=== PATIENT | female | born 1950 | race Caucasian/White ===

== ENCOUNTER 2017-05-17 20:35 | Emergency (ER) | payer MEDICARE, BC ==
[2017-05-17] MEDS ORDERED: Clindamycin CAP* 150 MG PO ONE (21:45)
[2017-05-17 22:12] VITALS: BP 120/68
--- NOTE | 2017-05-18 06:42 | ED ---
[place] [facility], scribed for Sky Hairston MD on 05/17/17 at 2141 . Skin Complaint - HPI Summary HPI Summary: Pt is a 66 y/o F who presents to ED c/o pruritis and erythema around biopsy site on the L breast. Reports that 2 days ago (Sunday morning) she had a biopsy of a raised mole on the L breast in Dr. Braden's office. She had left the Band-Aid covering the site attached then this morning the site became pruritic. She removed the Band-Aid after dinner, after which she noticed the pruritis worsening with associated pain and erythema. Associated pain is currently mild, ranked 3/10 and aggravated by palpation, alleviated by nothing. Additionally c/o nausea. Denies fever, chills. Reports that the wound is not draining. PMHx L breast CA with lumpectomy, chemotherapy and radiation - has been CA free for 6 years. - History of Current Complaint Chief Complaint: EDBreastComplaint Stated Complaint: INFLAMMATION ON LT BREAST-BIOPSY SITE Hx Obtained From: Patient Onset/Duration: Still Present Current Severity: Mild Pain Intensity: 3 Pain Scale Used: 0-10 Numeric Skin Location: Other: - L breast biopsy site Character: Pruritus, Pain, Redness Aggravating Symptom(s): Touch Alleviating Symptom(s): Nothing Associated Signs & Symptoms: Nausea - Allergy/Home Medications Allergies/Adverse Reactions: Allergies Allergy/AdvReac Type Severity Reaction Status Date / Time Alprazolam [From Xanax] Allergy Intermediate See Comment Verified 04/25/17 13:50 Diazepam [From Valium] Allergy Intermediate Altered Verified 04/25/17 13:50 Mental Status Meperidine [From Demerol HCl] Allergy Intermediate Vomiting Verified 04/25/17 13 :50 Morphine and Related Allergy Intermediate Vomiting Verified 04/25/17 13:50 Prochlorperazine Allergy Intermediate Vomiting Verified 04/25/17 13:50 [From Compazine] Sertraline [From Zoloft] Allergy Intermediate See Comment Verified 04/25/17 13: 50 Levofloxacin [From Levaquin] Allergy Mild Abdominal Verified 04/25/17 13:50 Pain Aspartame and Phenylalanine Allergy Difficulty Verified 04/25/17 13:50 Breathing Aspirin Allergy MAKES GUMS Verified 04/25/17 13:50 BLEED Ciprofloxacin [From Cipro] Allergy See Comment Verified 04/25/17 13:50 Codeine Allergy DROP BP, Verified 04/25/17 13:50 N/V Latex Allergy SEVERE Verified 04/25/17 13:50 RASH AND BLISTERS Lorazepam [From Ativan] Allergy HYPERACTIVE Verified 04/25/17 13:50 Paroxetine [From Paxil] Allergy URINARY Verified 04/25/17 13:50 RETENTION Propoxyphene [From Darvon] Allergy DECREASED Verified 04/25/17 13:50 BP AND NAUSEA lidocan with epi Allergy Severe Unknown Uncoded 04/25/17 13:50 Reaction Details PMH/Surg Hx/FS Hx/Imm Hx Endocrine/Hematology History: Reports: 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, FOLLOWED CLOSELY BY Denies: Hx Diabetes, Hx Thyroid Disease Cardiovascular History: Denies: Hx Hypertension, Hx Pacemaker/ICD, Other Cardiovascular Problems/ Disorders Respiratory History: Denies: Hx Asthma, Hx Chronic Obstructive Pulmonary Disease (COPD), Other Respiratory Problems/Disorders GI History: Reports: Hx Irritable Bowel - Hx OF, STATES [place] SINCE 2010, STILL CHRONIC CONSTIPATION,USES OTC MEDS Denies: Hx Ulcer, Other GI Disorders History: Denies: Hx Renal Disease, Other Problems/Disorders Comment Only: Hx Kidney Stones - 07/21/14, SOME HEMATURIA, POSSIBLE STONE, NOT CONFIRMED, NO Sx SINCE Musculoskeletal History: Reports: Other Musculoskeletal History - AGE 15, "FRACTURED BACK" Denies: Hx Rheumatoid Arthritis, Hx Osteoporosis Sensory History: Reports: Hx Contacts or Glasses - CONTACTS: WILL WEAR GLASSES DAY OF SURGERY Denies: Hx Hearing Aid Opthamlomology History: Reports: Hx Contacts or Glasses - CONTACTS: WILL WEAR GLASSES DAY OF SURGERY Neurological History: Reports: Hx Headaches, Hx Migraine - USUALLY GETS MONTHLY , USES OTC MEDS FOR RELIEF Denies: Other Neuro Impairments/Disorders Psychiatric History: Denies: Hx Panic Disorder - Cancer History Cancer Type, Location and Year: LT BREAST - LUMPECTOMY Hx Chemotherapy: Yes Hx Radiation Therapy: Yes - Surgical History Surgery Procedure, Year, and Place: 1973 Overian cyst removal [facility]. 2000 Left breast ca LUMPECTOMY, PORT INSERTED AND REMOVAL [facility]. 1983 TUBAL LIGATION [facility]. 02/2014 lt shoulder RCR [facility]. 1992 FOREIGN BODY REMOVAL FROM RT HAND [facility]. 01/02/15 Rt SHOULDER RCR Hx Anesthesia Reactions: Yes - 1983 VERY SLOW TO WAKE UP, N/V 3 DAYS Infectious Disease History: No Infectious Disease History: Denies: Hx Hepatitis, Hx Human Immunodeficiency Virus (HIV), Traveled Outside the [place] in Last 30 Days - Family History Known Family History: Positive: Respiratory Disease - Asthma, Other - Multiple myeloma - Social History Alcohol Use: None Substance Use Type: Reports: None Smoking Status (MU): Never Smoked Tobacco Have You Smoked in the Last Year: No Review of Systems Negative: Fever, Chills Positive: Nausea Positive: Other - Pruritis, erythema and pain around biopsy site on L breast; NEGATIVE: drainage All Other Systems Reviewed And Are Negative: Yes Physical Exam - Summary Physical Exam Summary: The patient is well-nourished in no acute distress and in no acute pain. The skin is warm and dry. She has got a small lesion on her left breast with no axillary adenopathy. The area has erythema with no abscess or fluid collection, but there is a white area in the center that appears to be infected. She has two other biopsy areas, one on the left wrist and the other on the left scapula that are healing well with no evidence of infection. HEENT: The head is normocephalic and atraumatic. The pupils are equal and reactive. The conjunctivae are clear and without drainage. Nares are patent and without drainage. Mouth reveals moist mucous membranes and the throat is without erythema and exudate. The external ears are intact. The ear canals are patent and without drainage. The tympanic membranes are intact. Neck is supple with full range of motion and non-tender. There are no carotid bruits. There is no neck vein distension. Respiratory: Chest is non-tender. Lungs are clear to auscultation and breath sounds are symmetrical and equal. Cardiovascular: Hear is regular rate and rhythm. There is no murmur or rub auscultated. There is no peripheral edema and pulses are symmetrical and equal. Abdomen: The abdomen is soft and non-tender. There are normal bowel sounds heard in all four quadrants and there is no organomegaly palpated. Musculoskeletal: There is no back pain noted. Extremities are non-tender with full range of motion. There is good capillary refill. There is no peripheral edema or calf tenderness elicited. Neurological: Patient is alert and oriented to person, place and time. The patient has symmetrical motor strength in all four extremities. Psychiatric: The patient has an appropriate affect and does not exhibit any anxiety or depression. , Triage Information Reviewed: Yes Vital Signs On Initial Exam: Initial Vitals Temp Pulse Resp BP Pulse Ox 97.8 F 86 17 143/81 98 05/17/17 20:40 05/17/17 20:40 05/17/17 20:40 05/17/17 20:40 05/17/17 20:40 Vital Signs Reviewed: Yes Diagnostics - Vital Signs Vital Signs Temp Pulse Resp BP Pulse Ox 05/17/17 20:40 97.8 F 86 17 143/81 98 - Laboratory Lab Statement: Any lab studies that have been ordered have been reviewed, and results considered in the medical decision making process. Course/Dx - Course Assessment/Plan: Pt is a 66 y/o F who presents to ED c/o pruritis and erythema around biopsy site on the L breast. Reports that 2 days ago (Sunday) she had a biopsy of a raised mole on the L breast in Dr. Braden's office. She had left the Band-Aid covering the site attached then this morning the site became pruritic. She removed the Band-Aid after dinner upon the pruritis worsening and noticed associated pain and erythema. Associated pain is currently mild, ranked 3/10 and aggravated by palpation, alleviated by nothing. Additionally c/o nausea. Denies fever, chills. Reports that the wound is not draining. PMHx L breast CA with lumpectomy, chemotherapy and radiation - has been CA free for 6 years. PE reveals that she has a small lesion on her left breast with no axillary adenopathy. The area has erythema with no abscess or fluid collection, but there is a white area in the center that appears to be infected. She has two other biopsy areas, one on the left wrist and the other on the left scapula that are healing well with no evidence of infection. In the ED course, pt was administred Clindamycin. She will be D/C to home with Dx of infeciton, L breast with an Rx for Clindamycin and a follow up with her PCP. She understands and agrees. Elevated BP noted and advised to f/u with PCP. - Differential Diagnoses - Skin Complaint Differential Diagnoses: Cellulitis - Diagnoses Provider Diagnoses: Infection of left breast Discharge - Discharge Plan Condition: Stable Disposition: HOME Prescriptions: Clindamycin Cap(NF) [Clindamycin Cap 300 mg Cap(NF)] 300 mg PO Q6H #28 cap Patient Education Materials: Cellulitis (ED) Referrals: Makenzie Lang MD [Primary Care Provider] - 3 Days The documentation as recorded by the [place] [facility] accurately reflects the service I personally performed and the decisions made by , Sky Hairston MD.
== END 2017-05-17 22:10 | disposition home or self-care (01) ==
LOC: ED 20:35
DX: N61.0 Mastitis without abscess (principal)
CPT/HCPCS: 99282; A9270-GY

== ENCOUNTER 2019-09-04 08:09 | Emergency (ER) | payer MEDICARE, BC ==
--- OUTSIDE RECORDS SUMMARY | 2019-09-04 08:17 | XMS REPORT | Continuity of Care Document ---
:1950 External Reference #:[id number] Author Name Choco Anaya M.D. Address [address] [place] [address] Care Team Providers Name Role Phone Natan Knight linda Care Team Information Craps Manager [phone] Makenzie Lang M.D. Care Team Information Craps Manager [phone] Problems Description No Information Available Social History Type Date Description Comments Sex Unknown Tobacco Use Start: Unknown Never Smoked Cigarettes Tobacco Use Start: Unknown Never Smoked Cigars Tobacco Use Start: Unknown Never Smoked A Pipe Smokeless Tobacco Never Used Smokeless Tobacco ETOH Use Denies alcohol use Allergies, Adverse Reactions, Alerts Active Allergies Reaction Severity Comments Date Demerol 07/14/2019 Propoxyphene 07/14/2019 Morphine 07/14/2019 Codeine 07/14/2019 Ativan 07/14/2019 Prozac 07/14/2019 Zoloft 07/14/2019 Paxil 07/14/2019 Cipro 07/14/2019 Tylenol 07/14/2019 lidocaine with epinephrine Severe Seizures 07/14/2019 Medications Active Medications SIG Qnty Indications Ordering Provider Date Vitamin B6 2 tabs daily Unknown 50mg Tablets Probiotic 1 by mouth every Unknown Capsules day Fiber Complete 3 gummies every Unknown Tablets day [facility] D3 daily Unknown 50mcg (2000 Ut) Capsules Fiber Diet as directed Unknown Tablets Biotin Gummies' daily Unknown Immunizations Description No Information Available Vital Signs Date Vital Result Comment 07/29/2019 3:05pm Weight 121.00 lb Weight 54.886 kg Height 63 inches 5'3" Height in cm's 160.0 cm BMI (Body Mass Index) 21.4 kg/m2 07/14/2019 1:57pm BP Systolic 153 mmHg BP Diastolic 93 mmHg Heart Rate 70 /min Respiratory Rate 17 /min Weight 121.00 lb Weight 54.886 kg Height 63 inches 5'3" Height in cm's 160.0 cm BMI (Body Mass Index) 21.4 kg/m2 Results Description No Information Available Procedures Date Code Description Status 07/14/2019 72624 Tympanometry Completed 07/14/2019 79296 Comprehensive Audiogram Completed Medical Devices Description No Information Available Encounters Type Date Location Provider Dx Diagnosis Office Visit 07/29/2019 [place] Dizziness and 3:00p 09/10/07 Tammy Anaya giddiness Office Visit 07/14/2019 [place] Dizziness and 1:30p 09/10/07 Tammy Anaya giddiness Assessments Date Code Description Provider 07/29/2019 R42 Dizziness and giddiness Choco Anaya M.D. 07/14/2019 R42 Dizziness and giddiness MANOLO Niño 07/14/2019 R42 Dizziness and giddiness Choco Anaya M.D. Plan of Treatment 07/29/2019 - Choco Anaya M.D.R42 Dizziness and giddinessComments:The patient returns today after her MRI and MRA. She has done well since I saw her the last time without any episodes. Her MRI and MRA are normal. I don't know what the cause of her symptoms has been. But there does not seem to be anything to be particularly concerned about. Functional Status Description No Information Available Mental Status Description No Information Available Referrals Description No Information Available
--- OUTSIDE RECORDS SUMMARY | 2019-09-04 08:17 | XMS REPORT | Continuity of Care Document ---
:1950 External Reference #:[id number] Author Name Makenzie Lang M.D. (transmitted by agent of provider Martha Mane) Address [address], [place] [address] Care Team Providers Name Role Phone Digna Valdes MD - Internal Medicine Care Team Information Search Consultant [phone] Makenzie Lang MD - Internal Care Team Information Search Consultant Medicine Samia Correa MD - Dermatology Care Team Information Search Consultant Problems Active Problems Provider Date Shoulder joint pain Digna Valdes M.D. Onset: 03/14/2013 Personal history of primary malignant Makenzie Lang M.D. Onset: 2013 neoplasm of breast Thrombocytopenic disorder Makenzie Lang M.D. Onset: 01/23/2014 Osteopenia Makenzie Lang M.D. 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 Onset: 2016 Right side sciatica Jeff Carpio M.D. Onset: 03/16/2017 Social History Type Date Description Comments Sex Unknown ETOH Use Never used alcohol Tobacco Use Start: Unknown Patient has never smoked Recreational Drug Use Denies Drug Use Smoking Status Reviewed: 07/24/19 Patient has never smoked Exercise Type/Frequency label folder Allergies, Adverse Reactions, Alerts Active Allergies Reaction Severity Comments Date Morphine 07/18/2007 Codeine 07/18/2007 Demerol 07/18/2007 Darvon 07/18/2007 Aspartame 07/18/2007 Epinephrine 07/18/2007 Valium severe headaches 07/18/2007 Latex 05/23/2013 Xanax 05/23/2013 Zoloft 05/23/2013 Paxil 05/23/2013 Artificial Sweeteners 05/23/2013 Johnnyivan makes her more anxious 10/23/2013 Cipro 11/19/2014 Acetaminophen 12/22/2016 Ibuprofen profound weakness 06/12/2019 Medications Active Medications SIG Qnty Indications Ordering Provider Date Digestive Health 1 po qd Unknown Probiotic Capsules Benefiber 1 tblsp po qd Unknown Powder Potassium taking whole tab Unknown 99mg now---1/2 tab qd Tablets Magnesium 1 by mouth every Unknown 500mg day Tablets Epipen 2-Jesus use as directed 2units Makenzie Lang M.DChandra 0.3mg/0.3ML Solution Auto-Inject Vitamin B-6 daily Unknown 25mg Tablets Vitamin D3 Complete once daily Unknown 2000Iu Tablets Melatonin 1-2 tablets at Unknown 5mg bed time Capsules Medications Administered in Office Medication SIG Qnty Indications Ordering Provider Date Depomedrol 80MG Williams Faria M.D. 04/10/2013 Injection Immunizations CPT Code Status Date Vaccine Lot # [id number] Given 04/22/2013 Tdap - Tetanus/Diptheria/Acellular Pertussis Vital Signs Date Vital Result Comment 07/24/2019 7:44am Height 62.5 inches 5'2.50" Weight 119.00 lb Heart Rate 65 /min BP Systolic 109 mmHg BP Diastolic 66 mmHg O2 % BldC Oximetry 100 % BMI (Body Mass Index) 21.4 kg/m2 06/12/2019 8:28am Height 62.5 inches 5'2.50" Weight 117.00 lb Heart Rate 74 /min BP Systolic 114 mmHg BP Diastolic 61 mmHg O2 % BldC Oximetry 100 % BMI (Body Mass Index) 21.1 kg/m2 Results Test Acquired Date Facility Test Result H/L Range Note Laboratory test 04/24/2019 [facility] TSH 1.75 Normal 0.34- 5.[address] (Thyroid mcIU/[place] [address] Stim [phone] Horm) C Reactive Protein < 1.00 mg/L Normal <8.01 Lyme Screen W/ Reflex To WB Negative Negative Laboratory test 04/04/2019 [facility] C Reactive < 1.00 Normal <8.[address] Protein mg/[place] [address] [phone] Folic Acid (Folate) 12.70 ng/mL >3.99 Vitamin B12 > 1450 pg/mL High 180-914 1 Erythrocyte Sed Rate 0 mm/Hr Normal 0-29 Comp Metabolic 03/28/2019 [facility] Sodium 141 mmol/L Normal 135-[address] [place] [address] [phone] Potassium 4.4 mmol/L Normal 3.5-5.0 Chloride 106 mmol/L Normal 101-111 Co2 Carbon Dioxide 29 mmol/L Normal 22-32 Anion Gap 6 mmol/L Normal 2-11 Glucose 104 mg/dL High 70-100 Blood Urea Nitrogen 18 mg/dL Normal 6-24 Creatinine 0.77 mg/dL Normal 0.51-0.95 BUN/Creatinine Ratio 23.4 High 8-20 Calcium 9.5 mg/dL Normal 8.6-10.3 Total Protein 6.8 g/dL Normal 6.4-8.9 Albumin 4.3 g/dL Normal 3.2-5.2 Globulin 2.5 g/dL Normal 2-4 Albumin/Globulin Ratio 1.7 Normal 1-3 Total Bilirubin 0.70 mg/dL Normal 0.2-1.0 Alkaline Phosphatase 62 U/L Normal 34-104 Alt 16 U/L Normal 7-52 Ast 23 U/L Normal 13-39 Egfr Non- 74.3 >60 Egfr 89.9 >60 2 Laboratory test 03/28/2019 [facility] CRP High 0.22 <2.[address] Sensitivity mg/[place] [address] [phone] CBC Auto Diff 03/28/2019 [facility] White Blood 3.7 Normal 3.5 -10.[address] Count 10^3/[place] [address] [phone] Red Blood Count 4.25 10^6/uL Normal 3.70-4.87 Hemoglobin 14.1 g/dL Normal 12.0-16.0 Hematocrit 42 % Normal 35-47 Mean Corpuscular Volume 99 fL High 80-97 Mean Corpuscular Hemoglobin 33 pg High 27-31 Mean Corpuscular HGB Conc 34 g/dL Normal 31-36 Red Cell Distribution Width 13 % Normal 10-15 Platelet Count 121 10^3/uL Low 150-450 Mean Platelet Volume 9.2 fL Normal 7.4-10.4 Abs Neutrophils 2.3 10^3/uL Normal 1.5-7.7 Abs Lymphocytes 0.9 10^3/uL Low 1.0-4.8 Abs Monocytes 0.4 10^3/uL Normal 0-0.8 Abs Eosinophils 0.1 10^3/uL Normal 0-0.6 Abs Basophils 0.1 10^3/uL Normal 0-0.2 Abs Nucleated RBC 0.0 10^3/uL Granulocyte % 61.8 % Lymphocyte % 24.1 % Monocyte % 11.1 % Eosinophil % 1.6 % Basophil % 1.4 % Nucleated Red Blood Cells % 0.0 Laboratory test 03/28/2019 [facility] Erythrocyte Sed 0 mm/Hr Normal 0-[address] [place] [address] [phone] Lyme Screen W/ Reflex To WB Negative Negative Lyme Disease AB 03/28/2019 [facility] IgG Immunoblot Negative Negative Immunoblot WB [address] [place] [address] [phone] IgG detected against p41 kDa IgM Immunoblot Negative Negative IgM detected against None kDa Lyme Disease Interpretation See Comment 3 1 Normal Range 180 to 914 Indeterminate Range 145 to 180 Deficient Range <145 2 Because ethnic data is not always readily available, this report includes an eGFR for both -Americans and non- Americans. The National Kidney Disease Education Program (NKDEP) does not endorse the use of the MDRD equation for patients that are not between the ages of 18 and 70, are , have extremes of body size, muscle mass, or nutritional status, or are non- or non-. According to the National Kidney Foundation, irrespective of diagnosis, the stage of the disease is based on the level of kidney function: Stage Description GFR(mL/min/1.73 m(2)) 1 Kidney damage with normal or decreased GFR 90 2 Kidney damage with mild decrease in GFR 60-89 3 Moderate decrease in GFR 30-59 4 Severe decrease in GFR 15-29 5 Kidney failure <15 (or dialysis) 3 Specific serologic response to B. burgdorferi infection is not detected, but cannot rule out early infection during which low or undetectable antibody levels to B. burgdorferi may be present. If clinically indicated, a new serum specimen should be submitted in 7-14 days. ADDITIONAL INFORMATION Per CDC criteria, the Lyme IgG Immunoblot is interpreted as positive if IgG-class antibodies are detected to >=5 B. burgdorferi proteins, and the Lyme IgM Immunoblot is interpreted as positive if IgM-class antibodies are detected to >=2 B. burgdorferi proteins. Immunoblot patterns not meeting these criteria should not be interpreted as positive. Epitopes from certain B. burgdorferi proteins (e.g., p41) are conserved across other bacteria, which may lead to the detection of IgM- and/or IgG-class antibodies on the Lyme disease immunoblots in patients without Lyme disease. Immunoblot should only be ordered on specimens that are positive or equivocal by a FDA-licensed Lyme disease antibody screening test (e.g., EIA). Results of the Lyme IgM immunoblot should not be considered in patients with >= 30 days of symptoms. Test Performed by: [facility] [address] [place] [address] Procedures Date Code Description Status 11/21/2018 [id number] Mammogram Completed 11/20/2017 [id number] Mammogram Completed 11/14/2016 [id number] Mammogram Completed 11/09/2015 [id number] Mammogram Completed 11/10/2014 [id number] Mammogram Completed 04/03/2013 [id number] Mammogram Completed 01/10/2013 [id number] Bone Mineral Density Test Completed 04/10/2011 [id number] Colonoscopy Completed Medical Devices Description No Information Available Encounters Type Date Location Provider Dx Diagnosis Office Visit 06/12/2019 [facility] Makenzie Lang, M54.31 Sciatica, right 8:40a Dana Porter M.D. side Z63.4 Disappearance and of family member D22.9 Melanocytic nevi, unspecified H81.313 Aural vertigo, bilateral Office Visit 04/14/2019 1:00p [facility] R53.81 Other malaise Dana Lang M.D. Office Visit 01/27/2019 10:00a [facility] Internal Makenzie R63.4 Abnormal weight Medicine - Charlotte Lang M.D. loss F33.9 Major depressive disorder, recurrent, unspecified R42 Dizziness and giddiness Assessments Date Code Description Provider 07/24/2019 G50.1 Atypical facial pain Makenzie Lang M.D. 06/12/2019 M54.31 Sciatica, right side Makenzie Lang M.D. 06/12/2019 Z63.4 Disappearance and of family member Makenzie Lang M.D. 06/12/2019 D22.9 Melanocytic nevi, unspecified Makenzie Lang M.D. 06/12/2019 H81.313 Aural vertigo, bilateral Makenzie Lang M.D. 04/24/2019 Z00.00 Encounter for general adult medical Makenzie Lang M.D. examination without abnormal findings 04/24/2019 M85.852 Other specified disorders of bone density Makenzie Lang M.D. and structure, left thigh 04/24/2019 F33.9 Major depressive disorder, recurrent, Makenzie Lang M.D. unspecified 04/24/2019 D22.9 Melanocytic nevi, unspecified Makenzie Lang M.D. 04/24/2019 R42 Dizziness and giddiness Makenzie Lang M.D. 04/14/2019 R53.81 Other malaise Makenzie Lang M.D. 01/27/2019 R63.4 Abnormal weight loss Makenzie Lang M.D. 01/27/2019 F33.9 Major depressive disorder, recurrent, Makenzie Lang M.D. unspecified 01/27/2019 R42 Dizziness and giddiness Makenzie Lang M.D. Plan of Treatment Future Appointment(s):11/13/2019 7:40 am - Maken[facility] M.D. at [facility] 3[facility]15 pm - Samia Correa MD at [facility] Iudpodzukbs57/15/2019 10:00 am - Jose Tariq LCSW at [facility] - Makenzie Lang M.D.G50.1 Atypical facial painComments: Continue talking with Jose Nicholson on Sunday - I will call you about the result. You should also follow up with Dr. Deleon up:November for f/u mood Functional Status Description No Information Available Mental Status Description No Information Available Referrals Refer to Reason for Referral Status Appt Date Samia Correa MD Sent 08/05/2019 [address] [facility] [place] [address] [phone] Patricia Biswas MD Pt will schedule appt. Received Partial [address] [facility] [facility] [address] [place] [address] [phone] Jose Tariq, POST ANESTHESIA ROOM NURSE 03/10/19 LMTCB for an appt. S5 LMTCB to Scheduled 02/07/2019 schedue-letter sent 03/31 [place] [address] [phone]
--- OUTSIDE RECORDS SUMMARY | 2019-09-04 08:17 | XMS REPORT | Continuity of Care Document ---
:1950 External Reference #:[id number] Author Name Choco Anaya M.D. Address [address] [place] [address] Care Team Providers Name Role Phone Natan Knight linda Care Team Information Retarder Operator [phone] Makenzie Lang M.D. Care Team Information Retarder Operator [phone] Problems Description No Information Available Social History [...] Available Vital Signs Date Vital Result Comment 07/14/2019 1:57pm BP Systolic 153 mmHg BP Diastolic 93 mmHg Heart Rate 70 /min Respiratory Rate 17 /min Weight 121.00 lb Weight 54.886 kg Height 63 inches 5'3" Height in cm's 160.0 cm BMI (Body Mass Index) 21.4 kg/m2 Results Description No Information Available Procedures Description No Information Available Medical Devices Description No Information Available Encounters Type Date Location Provider Dx Diagnosis Office Visit 07/14/2019 Natan Collier R42 Dizziness and 1:30p 09/10/07 Tammy Anaya giddiness Assessments Date Code Description Provider 07/14/2019 R42 Dizziness and giddiness Choco Anaya M.D. Plan of Treatment No Information Available Functional Status Description No Information Available Mental Status Description No Information Available Referrals Description No Information Available
--- OUTSIDE RECORDS SUMMARY | 2019-09-04 08:17 | XMS REPORT | Continuity of Care Document ---
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 Allergies, Adverse Reactions, Alerts Active Allergies Reaction Severity Comments Date Morphine 07/18/2007 Codeine 07/18/2007 Demerol 07/18/2007 Darvon 07/18/2007 Aspartame 07/18/2007 Epinephrine 07/18/2007 Valium severe headaches 07/18/2007 Latex 05/23/2013 Xanax 05/23/2013 Zoloft 05/23/2013 Paxil 05/23/2013 Artificial Sweeteners 05/23/2013 Devon makes her more anxious 10/23/2013 Cipro 11/19/2014 Acetaminophen 12/22/2016 Ibuprofen profound weakness 06/12/2019 Medications Active Medications SIG Qnty Indications Ordering Provider Date Flovent HFA 1-2 puffs twice 10.600gm R05 Kitty Taylor, 08/25/2019 44mcg/Act daily for 2-3 M.D., FACP Aerosol weeks Digestive Health 1 po qd Unknown Probiotic Capsules Benefiber 1 tblsp po qd Unknown Powder Potassium taking whole tab Unknown 99mg now---1/2 tab qd Tablets Magnesium 1 by mouth every Unknown 500mg day Tablets Epipen 2-Jesus use as directed 2units Makenzie Lang, M.DChandra 0.3mg/0.3ML Solution Auto-Inject Vitamin B-6 daily Unknown 25mg Tablets Vitamin D3 Complete once daily Unknown 2000Iu Tablets Melatonin 1-2 tablets at Unknown 5mg bed time Capsules Medications Administered in Office Medication SIG Qnty Indications Ordering Provider Date Depomedrol 80MG Williams aFria M.D. 04/10/2013 Injection Immunizations CPT Code Status Date Vaccine Lot # [id number] Given 04/22/2013 Tdap - Tetanus/Diptheria/Acellular Pertussis Vital Signs Date Vital Result Comment 08/25/2019 1:56pm Height 62.5 inches 5'2.50" Weight 117.00 lb Heart Rate 85 /min BP Systolic Sitting 128 mmHg BP Diastolic Sitting 70 mmHg O2 % BldC Oximetry 97 % BMI (Body Mass Index) 21.1 kg/m2 07/24/2019 7:44am Height 62.5 inches 5'2.50" Weight 119.00 lb Heart Rate 65 /min BP Systolic 109 mmHg BP Diastolic 66 mmHg O2 % BldC Oximetry 100 % BMI (Body Mass Index) 21.4 kg/m2 Results Test Acquired Date Facility Test Result H/L Range Note Laboratory test 07/25/2019 [facility] Blood Urea 20 mg/dL Normal 6-[address] [place] [address] [phone] Creatinine 07/25/2019 [facility] Creatinine 0.76 mg/dL Normal 0.51-[address] [place] [address] [phone] Egfr Non- 75.5 >60 Egfr 91.3 >60 1 Laboratory 04/24/2019 [facility] TSH (Thyroid 1.75 Normal 0.34 -5.[address] Stim Horm) mcIU/[place] [address] [phone] C Reactive Protein < 1.00 mg/L Normal <8.01 Lyme Screen W/ Reflex To WB Negative Negative Laboratory test 04/04/2019 [facility] C Reactive < 1.00 Normal <8.01 finding [address] [facility] Protein mg/[place] [address] [phone] Folic Acid (Folate) 12.70 ng/mL >3.99 Vitamin B12 > 1450 pg/mL High 180-914 2 Erythrocyte Sed Rate 0 mm/Hr Normal 0-29 Comp Metabolic 03/28/2019 [facility] Sodium 141 mmol/L Normal 135-145 Panel [address] [place] [address] [phone] Potassium 4.4 mmol/L Normal 3.5-5.0 Chloride 106 [...] Egfr Non- 74.3 >60 Egfr 89.9 >60 3 Laboratory test 03/28/2019 [facility] CRP High 0.22 <2.[address] Sensitivity mg/[place] [address] [phone] CBC Auto Diff 03/28/2019 [facility] White Blood 3.7 Normal 3.5 -10.[address] Count 10^3/[place] [address] [phone] Red Blood Count 4.25 10^6/uL Normal 3.70-4.87 [...] Blood Cells % 0.0 Laboratory test 03/28/2019 [facility] Erythrocyte Sed 0 mm/Hr Normal 0-[address] [place] [address] [phone] Lyme Screen W/ Reflex To WB Negative Negative Lyme Disease AB 03/28/2019 [facility] IgG Immunoblot Negative Negative Immunoblot WB [address] [place] [address] [phone] IgG detected against p41 kDa IgM Immunoblot Negative Negative IgM detected against None kDa Lyme Disease Interpretation See Comment 4 1 Because ethnic data is not always readily [...] 15-29 5 Kidney failure <15 (or dialysis) 2 Normal Range 180 to 914 Indeterminate Range 145 to 180 Deficient Range <145 3 Because ethnic data is not always readily [...] 15-29 5 Kidney failure <15 (or dialysis) 4 Specific serologic response to B. burgdorferi infection [...] 30 days of symptoms. Test Performed by: [facility] [address] [place] [address] Procedures Date Code Description Status 11/21/2018 [id number] Mammogram Completed 11/20/2017 [id number] Mammogram Completed 11/14/2016 [id number] Mammogram Completed 11/09/2015 [id number] Mammogram Completed 11/10/2014 [id number] Mammogram Completed 04/03/2013 [id number] Mammogram Completed 01/10/2013 [id number] Bone Mineral Density Test Completed 04/10/2011 [id number] Colonoscopy Completed Medical Devices Description No Information Available Encounters Type Date Location Provider Dx Diagnosis Office Visit 08/05/2019 [facility] Dermatology Samia Correa, D22.5 Melanocytic nevi of 3:15p trunk L81.4 Other melanin hyperpigmentation L82.1 Other seborrheic keratosis Office Visit 07/24/2019 7:40a [facility] Internal Makenzie Lang, G50.1 [facility].D[facility] pain F33.9 Major depressive disorder, recurrent, unspecified Office Visit 06/12/2019 8:40a [facility] Internal Makenzie M54.31 Sciatica, right Medicine - Tammy Lang side [facility] Z63.4 Disappearance and of family member D22.9 Melanocytic nevi, unspecified H81.313 Aural vertigo, bilateral Office Visit 04/14/2019 1:00p [facility] Internal Makenzie Lang, R53.81 Other malaise Medicine - [facility] M.Britni Assessments Date Code Description Provider 08/25/2019 R05 Cough Kitty Taylor M.D., FACP 08/05/2019 D22.5 Melanocytic nevi of trunk Samia Correa MD 08/05/2019 L81.4 Other melanin hyperpigmentation Samia Correa MD 08/05/2019 L82.1 Other seborrheic keratosis Samia Correa MD 07/24/2019 G50.1 Atypical facial pain Makenzie Lang M.D. 07/24/2019 F33.9 Major depressive disorder, recurrent, Makenzie Lang M.D. unspecified 06/12/2019 M54.31 Sciatica, right side Makenzie Lang [...] 04/14/2019 R53.81 Other malaise Makenzie Lang M.D. Plan of Treatment Future Appointment(s):08/06/2020 10:00 am - Samia Correa MD at [facility] Pqozzpxzlwh98/20/2019 10:00 am - Jose Tariq LCSW at [facility] Internal [facility]/13/2019 7:40 am - Makenzie Lang M.D. at [facility]25/2019 - Kitty Taylor M.D., FACPR05 CoughNew Medication:Flovent HFA 44 mcg/Act - 1-2 puffs twice daily for 2-3 weeksComments:COUGH:This is most likely due to mechanical issues such as reactive airways and post nasal drip.I recommend aggressive symptom management with inhaled steroids, cough suppression with OTC or rx preps.I understand you have had reactions in the past to many meds. I have sent rx's for the Flovent to your pharmacy. You may use Mucinex and nasal saline as needed. You may also use phenylephrine or pseudoephedrine (decongestants) as needed, however be aware that these meds are stimulating. Keep well hydrated. Call back if you experience any symptoms consistent with a secondary bacterial process (ie,fevers or chills, heavier cough, shortness of breath). It is possible that an antibiotic may have utility if this occurs.Follow up:as needed Functional Status Description No Information Available Mental Status Description No Information Available Referrals Refer to Reason for Referral Status Appt Date Samia Correa MD Sent 08/05/2019 [address] [facility], [place] [address] [phone] Patricia Biswas MD Pt will schedule appt. Received Partial [address] [facility] [address] [place] [address] [phone]
[2019-09-04 08:40] VITALS: BP 141/65
--- NOTE | 2019-09-04 08:53 | UC ---
General HPI - HPI Summary HPI Summary: 69 yo woman comes for evaluation of a rash on the right side of her neck. She is concerned about possible Lyme disease. Noticed a sore spot on her right neck on 08/28 and assumed she might have a bite (has a horse, has been feeding him hay), but then noticed an ovoid rash x 3 days ago, coupled with ache across the low back and sharp epigastric pains. She does not have fever, no urinary symptoms, normal bowel function. Her of heart disease exacerbated by Lyme disease. She has tested negative for Lyme disease in the past Does have hx of OA in the hip, and hx of msk pain. She does not have joint swelling or diffuse arthroalgias. - History of Current Complaint Chief Complaint: Christine Stated Complaint: BUG BITE ON SHOULDER PAIN IN PELVIS AREA Time Seen by Provider: 09/04/19 08:35 Hx Obtained From: Patient Onset/Duration: Gradual Onset, Lasting Days - 4 Timing: Constant Onset Severity: Mild Current Severity: Moderate Pain Intensity: 7 Associated Signs & Symptoms: Negative: Diarrhea, Dysuria, Diaphoresis, Fever, Headache - Allergy/Home Medications Allergies/Adverse Reactions: Allergies Allergy/AdvReac Type Severity Reaction Status Date / Time acetaminophen Allergy Hallucinati Verified 09/04/19 08:26 ons alprazolam Allergy See Comment Verified 09/04/19 08:26 aspartame Allergy Tachycardia Verified 09/04/19 08:26 aspirin Allergy See Comment Verified 09/04/19 08:26 ciprofloxacin Allergy See Comment Verified 09/04/19 08:26 codeine Allergy See Comment Verified 09/04/19 08:26 cyclosporine [From Restasis] Allergy See Comment Verified 09/04/19 08:40 diazepam Allergy Altered Verified 09/04/19 08:26 Mental Status ibuprofen [From Advil] Allergy Dizziness Verified 09/04/19 08:26 latex Allergy Rash And Verified 09/04/19 08:26 Itching levofloxacin Allergy Abdominal Verified 09/04/19 08:26 Pain lorazepam Allergy See Comment Verified 09/04/19 08:26 meperidine Allergy Vomiting Verified 09/04/19 08:26 morphine Allergy Vomiting Verified 09/04/19 08:26 paroxetine Allergy See Comment Verified 09/04/19 08:26 phenylalanine Allergy Tachycardia Verified 09/04/19 08:26 prochlorperazine Allergy Vomiting Verified 09/04/19 08:26 propoxyphene Allergy See Comment Verified 09/04/19 08:26 sertraline Allergy See Comment Verified 09/04/19 08:26 lidocan with epi Allergy Severe Unknown Uncoded 09/04/19 08:26 Reaction Details Home Medications: Home Medications Biotin 1 tab PO DAILY 09/04/19 [History Confirmed 09/04/19] Dextromethorphan HBr [Tussin Cough] 1 dose PO ONCE PRN 09/04/19 [History Confirmed 09/04/19] Fluticasone HFA 44 mcg(NF) [Flovent Hfa 44 mcg(NF)] 1 - 2 puff INH BID 09/04/19 [History Confirmed 09/04/19] Sambucol Elderberry 1 dose PO ONCE PRN 09/04/19 [History Confirmed 09/04/19] PMH/Surg Hx/FS Hx/Imm Hx Previously Healthy: Yes Cancer History: Breast Cancer - Surgical History Surgical History: Yes Surgery Procedure, Year, and Place: 1973 Overian cyst removal [facility]. 2000 Left breast ca LUMPECTOMY, PORT INSERTED AND REMOVAL [facility]. 1983 TUBAL LIGATION [facility]. 02/2014 lt shoulder RCR [facility]. 1992 FOREIGN BODY REMOVAL FROM RT HAND [facility]. 01/02/15 Rt SHOULDER RCR - Family History Known Family History: Positive: Respiratory Disease - Asthma, Other - Multiple myeloma - Social History Occupation: Retired Lives: Alone Alcohol Use: Rare Substance Use Type: None Smoking Status (MU): Never Smoked Tobacco Have You Smoked in the Last Year: No Review of Systems All Other Systems Reviewed And Are Negative: Yes Constitutional: Positive: Negative Skin: Positive: Rash Eyes: Positive: Negative ENT: Positive: Sore Throat - mild symptoms, and wonders if she might have thrush Respiratory: Positive: Other - recent treatment of bronchitis, treated with inhaler (viral dx) Cardiovascular: Negative: Palpitations, Chest Pain Gastrointestinal: Positive: Negative Genitourinary: Positive: Negative Motor: Positive: Negative Neurovascular: Positive: Negative Musculoskeletal: Positive: Arthralgia Neurological: Positive: Negative Psychological: Positive: Negative Is Patient Immunocompromised?: No Physical Exam Triage Information Reviewed: Yes Appearance: Well-Appearing, No Pain Distress Vital Signs: Initial Vital Signs Temp 98.2 F 09/04/19 08:17 Pulse 88 09/04/19 08:17 Resp 18 09/04/19 08:17 BP 141/65 09/04/19 08:17 Pulse Ox 98 09/04/19 08:17 Eye Exam: Normal ENT: Positive: Pharynx normal, TMs normal, Other - normal mucous membranes, no evidence of thrush Dental Exam: Normal Neck: Positive: Supple, Nontender, No Lymphadenopathy Respiratory: Positive: Lungs clear, Normal breath sounds Cardiovascular: Positive: RRR, No Murmur Abdomen Description: Positive: Nontender, No Organomegaly, Soft Musculoskeletal Exam: Normal Musculoskeletal: Positive: Strength Intact Neurological Exam: Normal Neurological: Positive: Alert Psychological Exam: Normal Skin Exam: Other - ovoid erythematous patch 3 x 1 cm right medial clavicular area, mild scale, without induration or evidence of puncture wound. Non- blanching. Course/Dx - Course Course Of Treatment: Advised that rash is not suggestive of erythema migrans (no expansion/size does not meed criteria). - Differential Dx - Multi-Symptom Differential Diagnoses: Other - Diagnoses Provider Diagnosis: Rash and nonspecific skin eruption Discharge ED - Sign-Out/Discharge Documenting (check all that apply): Patient Departure All imaging exams completed and their final reports reviewed: No Studies - Discharge Plan Condition: Stable Disposition: HOME Patient Education Materials: Acute Rash (ED) Referrals: Makenzie Lang MD [Primary Care Provider] - Additional Instructions: The rash over your clavicle is not specific --it could be a dry patch of skin or possibly early ringworm. The rash of Lyme changes with time: observe for any expansion of the red area and follow up if this occurs, and monitor for fever, progressive joint pains, headaches, flu like symptoms. - Billing Disposition and Condition Condition: STABLE Disposition: Home
== END 2019-09-04 09:34 | disposition home or self-care (01) ==
LOC: UCEAST 08:09
DX: R21 Rash and other nonspecific skin eruption (principal); Z88.6 Allergy status to analgesic agent; Z88.8 Allergy status to other drugs, medicaments and biological substances; Z88.1 Allergy status to other antibiotic agents; Z88.5 Allergy status to narcotic agent; Z91.040 Latex allergy status
CPT/HCPCS: 99211; G0463